=== PATIENT | male | born 1945 | race African-American/Black ===

== ENCOUNTER 2024-07-29 10:53 | Emergency (ER) | payer OTHER, BC ==
--- OUTSIDE RECORDS SUMMARY | 2024-07-29 10:56 | XMS REPORT | Continuity of Care Document ---
Author Name Unknown Address [address] [facility] [address] [place] [address] [facility] thconnect Address [address] [facility] [place] [address] Care Team Providers Care Equalizer Operator Name Role Phone Jonatan Marshall MD Primary Care Physician [phone] Jonatan Marshall Attending Clinician Unavailable Kimberley Salazar MD Attending Clinician [phone] KIMBERLEY SALAZAR Attending Clinician Unavail able Jerome Singh Attending Clinician [phone] JEROME KING Attending Clinician Unavailable Unknown, Attending Attending Clinician Unavailab le Doctor Unassigned, [place] Attending Clinician U navailable AMANDA SEGAL Attending Clinician Unavailable Amanda Puente Attending Clinician [phone] Nurse, [facility] Attending Clinician Un available Ju Matias Attending Clinician [phone] JU JOSUE Attending Clinician Unavailabl e Lab, Adc Fam Pob I Attending Clinician Unavailab Mariluz Caraballo Attending Clinician [phone] MARILUZ MELÉNDEZ Attending Clinician Unavailable Payers Payer Name Policy Type Policy Number Effective Date Expiration Date Source MEDICARE PART A AND B Medicare [id number] 2024 00:00:00 [facility] PPO 6 [id number] Cl ear [facility] Problems Condition Name Condition Details Condition Category Status Onset Date Resolution Date Last Treatment Date Treating Clinician Comments Source Type 2 diabetes mellitus Type 2 diabetes mellitus Disease Active 07-26 00:00: 00 Kam Cortés 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, 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, bilateral legs Disease Active 07-26 00:00: 00 Kam Cortés Injury of tendon of rotator cuff Injury of tendon of rotator cuff Disease Active 07-26 00:00: 00 Kam Cortés Paresthesi a Paresthesi a Disease Active 07-26 00:00: 00 Kam Cortés Peripheral polyneurop athy Peripheral polyneurop athy Disease Active 07-26 00:00: 00 Kam Cortés No known active problems No known active problems Disease [facility] 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, 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, bilateral legs Problem [facility] Allergies, Adverse Reactions, Alerts Allergy Name Allergy Type Status Severity Reaction(s) Onset Date Inactive Date Treating Clinician Comments Source Lisinopr il Propensi ty to adverse reaction s Active Cough 10-29 00:00: 00 Kam Cortés LISINOPR IL DRUG INGREDI Active COUGH 10-29 00:00: 00 [facility] Lisinopr il Propensi ty to adverse reaction s Active Cough 10-29 00:00: 00 [facility] NO KNOWN ALLERGIE S Drug Class Active [facility] Social History Social Habit Start Date Stop Date Quantity Comments Source Gender identity 2023-09-06 04:13:12 Identifies as male gender (finding) Tamar Cortés History of Tobacco Use [facility] Sex Assigned [facility] Tobacco use and exposure 2024-07-26 00:00:00 2024-07-26 00:00:00 Smokeless tobacco non-user [facility] Alcoholic beverage intake 2024-07-26 00:00:00 2024-07-26 00:00:00 Lifetime non-drinker (finding) [facility] History of Social function 2024-07-26 00:00:00 2024-07-26 00:00:00 [facility] Exposure to SARS-CoV-2 (event) 2021-10-19 00:00:00 2021-10-29 17:21:00 Not sure [facility] Smoking Status Start Date Stop Date Source Never smoked tobacco [facility] Tobacco smoking consumption unknown [facility] Medications Ordered Medication Name Filled Medication Name Start Date Stop Date Current Medication? Ordering Clinician Indication Dosage Frequency Signature (SIG) Comments Components Source aspirin EC 81 MG EC tablet aspirin EC 81 MG EC tablet 07-26 09:28: 47 Yes 81mg QD Take 81 mg by mouth 1 time each day. [facility] albuterol 90 mcg/actuati on inhaler 2023-06 00:00: 00 06-13 05:59 :00 Yes [id number] 2{puff} Inhale 2 Puffs every 6 (six) hours as needed for Wheezing for up to 10 days. [facility] amoxicillin -clavulanat e (AUGMENTIN) 875-125 mg per tablet 2023-06 00:00: 00 06-13 05:59 :00 Yes [id number] 1{tbl} Take 1 tablet by mouth in the morning and 1 tablet in the evening. Do all this for 10 days. [facility] codeine-gua ifenesin 10-100 mg/5 mL oral solution 2023-06 00:00: 00 06-08 05:59 :00 Yes 5mL Take 5 mL by mouth every 6 (six) hours as needed for Cough for up to 5 days. Indication s: cough [facility] Cefadroxil 500 MG Cefadroxil 500 MG - 00:00: 00 No 1{capsu le} BID Cefadroxil 500 MG cloNIDine (CATAPRES) tablet 0.1 mg 10-30 02:45: 00 10-30 01:52 :00 No .1mg 0.1 mg, Oral, ONCE, 1 dose, On Thu10/29/21 at 2145, STAT [facility] methocarbam oL (ROBAXIN) tablet 500 mg 10-30 02:45: 00 10-30 01:52 :00 No 500mg 500 mg, Oral, ONCE NOW, 1 dose, On Thu10/29/21 at 2145, Routine [facility] ketorolac (TORADOL) injection 30 mg 10-30 02:45: 00 10-30 01:54 :00 No 30mg 30 mg, Intramuscu lar, ONCE, 1 dose, On Thu10/29/21 at 2145, FROY [facility] carvediloL (COREG) tablet 6.25 mg 10-30 02:45: 00 10-30 01:52 :00 No 6.25mg 6.25 mg, Oral, ONCE NOW, 1 dose, On Thu10/29/21 at 2145, Routine [facility] naproxen 500 mg tablet 10-29 00:00: 00 Yes [id number] 500mg Take 1 tablet by mouth 2 (two) times daily with meals. [facility] methocarbam oL 500 mg tablet 10-29 00:00: 00 Yes [id number] 500mg Take 1 tablet by mouth 4 (four) times daily as needed (muscle pain). [facility] carvediloL 6.25 mg tablet 09-13 00:00: 00 Yes 6.25mg Take 6.25 mg by mouth 2 (two) times daily. [facility] lovastatin 20 mg tablet 09-13 00:00: 00 Yes 20mg Take 20 mg by mouth daily. [facility] metFORMIN 1,000 mg tablet 09-13 00:00: 00 Yes TAKE 1 TABLET BY MOUTH TWICE DAILY . APPOINTMEN T REQUIRED FOR FUTURE REFILLS [facility] Vital Signs Vital Name Observation Time Observation Value Comments S сергей Systolic blood pressure 2024-07-26 09:30:00 180 mm[Hg] [facility] Diastolic blood pressure 2024-07-26 09:30:00 100 mm[Hg] [facility] Epic Heart rate 2024-07-26 09:30:00 66 /min [facility] Body temperature 2024-07-26 09:30:[address] [facility] Epic Respiratory rate 2024-07-26 09:30:00 16 /min [facility] Epic Body height 2024-07-26 09:30:00 180.3 cm [facility] Body weight 2024-07-26 09:30:00 91.627 kg [facility] BMI 2024-07-26 09:30:00 28.17 kg/m2 [facility] Oxygen saturation in Arterial blood by Pulse oximetry 2024-07-26 09:30:00 99 /min [facility] Systolic blood pressure 2024-07-26 09:30:00 180 mm[Hg] [facility] Diastolic blood pressure 2024-07-26 09:30:00 100 mm[Hg] [facility] Heart rate 2024-07-26 09:30:00 66 /min [facility] Body temperature 2024-07-26 09:30:00 36.61 [facility] Respiratory rate 2024-07-26 09:30:00 16 /min [facility] Body height 2024-07-26 09:30:00 180.3 cm [facility] Body weight 2024-07-26 09:30:00 91.627 kg [facility] BMI 2024-07-26 09:30:00 28.17 kg/m2 [facility] Oxygen saturation in Arterial blood by Pulse oximetry 2024-07-26 09:30:00 99 /min [facility] Systolic blood pressure 2024-06-02 16:59:00 231 mm[Hg] [facility] Diastolic blood pressure 2024-06-02 16:59:00 93 mm[Hg] [facility] BMI 2024-06-02 16:58:00 27.12 kg/m2 [facility] Oxygen saturation in Arterial blood by Pulse oximetry 2024-06-02 16:58:00 95 /min [facility] Heart rate 2024-06-02 16:58:00 92 /min Un[facility] Body temperature 2024-06-02 16:58:00 37.28 Lili [facility] Respiratory rate 2024-06-02 16:58:00 20 /min [facility] Body height 2024-06-02 16:58:00 182.9 cm [facility] Body weight 2024-06-02 16:58:00 90.719 kg [facility] Systolic blood pressure 2021-10-30 03:34:00 204 mm[Hg] [facility] Diastolic blood pressure 2021-10-30 03:34:00 69 mm[Hg] [facility] Heart rate 2021-10-30 03:34:00 53 /min Un[facility] Respiratory rate 2021-10-30 03:34:00 18 /min [facility] Oxygen saturation in Arterial blood by Pulse oximetry 2021-10-30 03:34:00 100 /min [facility] Body temperature 2021-10-29 22:53:00 37.17 Lili [facility] Body height 2021-10-29 22:53:00 182.9 cm [facility] Body weight 2021-10-29 22:53:00 91.173 kg [facility] BMI 2021-10-29 22:53:00 27.26 kg/m2 [facility] Systolic blood pressure 2021-10-29 22:44:00 241 mm[Hg] [facility] Diastolic blood pressure 2021-10-29 22:44:00 91 mm[Hg] [facility] Heart rate 2021-10-29 22:43:00 73 /min [facility] Tylere [facility] Body temperature 2021-10-29 22:43:00 36.72 Lili [facility] Respiratory rate 2021-10-29 22:43:00 16 /min [facility] Body height 2021-10-29 22:43:00 182.9 cm [facility] Body weight 2021-10-29 22:43:00 91.173 kg [facility] BMI 2021-10-29 22:43:00 27.26 kg/m2 [facility] Oxygen saturation in Arterial blood by Pulse oximetry 2021-10-29 22:43:00 100 /min [facility] Procedures Procedure Date / Time Performed Performing Clinician Source Complete Blood Count w/Diff and Platelet 2024-07-26 00:00:00 [facility] Comprehensive Metabolic Panel 2024-07-26 00:00:00 [facility] Hemoglobin A1c 2024-07-26 00:00:00 Jacquelineignacio al [facility] Ceruloplasmin 2024-07-26 00:00:00 Jacquelinejaciel l [facility] Copper Level 2024-07-26 00:00:00 [facility] C-Reactive Protein 2024-07-26 00:00:00 [facility] Immunofixation (RUTH) 2024-07-26 00:00:00 [facility] Sedimentation Rate 2024-07-26 00:00:00 [facility] Zinc Level 2024-07-26 00:00:00 [facility] Vitamin B6 Level 2024-07-26 00:00:00 [facility] Vitamin B12 Level 2024-07-26 00:00:00 [facility] Vitamin B1 Level 2024-07-26 00:00:00 [facility] Thyroid Stimulating Hormone w/ Reflex Free T4 2024-07-26 00:00:00 [facility] XR CHEST 2 VW 2024-06-02 17:37:00 Jerome King [facility] POCT SARS-COV-2 ANTIGEN (BINAX NOW) 2024-06-02 17:15:00 Kelby El [facility] AUTHORIZATION FOR RELEASE OF PHI 2021-11-08 05:01:00 Doctor Unassigned, [place] [facility] XR HAND 3+ VW LEFT 2021-10-30 00:10:00 Amanda Segal [facility] CT CERVICAL SPINE WO CONTRAST 2021-10-30 00:04:56 Amanda Segal [facility] CT LUMBAR SPINE WO CONTRAST 2021-10-30 00:04:56 Amanda Segal [facility] NOTICE OF PRIVACY PRACTICES 2021-10-29 22:49:40 Doctor Unassigned, [place] [facility] ASSIGNMENT OF BENEFITS 2021-10-29 22:20:35 Missy gauthier Unassigned, [place] [facility] Encounters Start Date/Time End Date/Time Encounter Type Admission Type Attending [facility] Care Department Encounter ID Source 2024-02-23 09:29:01 Outpatient Jonatan Marshall [facility] CLS [id number] [place] [facility] 2024-07-26 09:30:00 2024-07-26 10:28:23 Consult Kimberley Salazar [place] 1..840.114 [id number] [facility] 2024-07-26 09:19:02 2024-07-26 10:28:23 Outpatient Elective KIMBERLEY SALAZAR EOUT EOUT [id number] [facility] 2024-06-02 11:24:50 2024-06-02 23:59:00 Hospital Encounter Jerome King [facility] [id number] [facility] 2024-06-02 11:24:50 2024-06-02 23:59:00 Outpatient R EDDI KINGDIONY [facility] [id number] [facility] 2024-06-02 09:40:00 2024-06-02 12:04:33 Urgent Care Jerome King Unknown, Attending [facility] [id number] [facility] 2024-04-13 00:00:00 2024-04-13 00:00:00 (TEL) [facility] CLS [id number] [facility] 2024-04-12 00:00:00 2024-04-12 00:00:00 Office Visit- Est Pt.- Level 4 CLS CLS [id number] [facility] 2024-03-15 00:00:00 2024-03-15 00:00:00 Office Visit- Est Pt.- Level 3 CLS CLS [id number] [facility] 2024-03-01 00:00:00 2024-03-01 00:00:00 Office Visit- Est Pt.- Level 3 CLS CLS [id number] [facility] 2024-02-23 00:00:00 2024-02-23 00:00:00 Office Visit- New Pt.- Level 3 CLS CLS [id number] Adrienne little 2021-11-08 00:00:00 2021-11-08 00:00:00 Orders Only Doctor Unassigned, [place] [facility] 1..840.114 350.1.13.10 [id number] [id number] [facility] 2021-10-29 17:59:00 2021-10-29 22:35:00 Emergency X AMANDA SEGAL [facility] ERT [id number] [facility] 2021-10-29 17:59:00 2021-10-29 22:35:00 Emergency Amanda Segal [facility] 1..840.114 350.1.13.10 [id number] [facility] 2021-10-29 17:45:00 2021-10-29 18:05:00 Nurse Visit Nurse, [facility] 1..840.114 350.1.13.10 [id number] [id number] [facility] 2021-10-29 17:45:00 2021-10-29 17:45:00 Outpatient R BERONICA JOSUETANY [facility] [id number] [facility] 2021-10-29 17:20:00 2021-10-29 17:20:00 Outpatient R JU JOSUE [facility] [id number] [facility] 2021-10-29 00:00:00 2021-10-29 00:00:00 Orders Only Doctor Unassigned, [place] [facility] 1.840.114 350.1.13.10 [id number] [id number] [facility] 2020-07-12 15:47:30 2020-07-12 16:07:30 Laboratory Only Lab, Adc Fam Pob [facility] 1.840.114 [id number] [id number] [id number] [facility] 2020-07-12 15:40:00 2020-07-12 15:40:00 Outpatient R MARILUZ MELÉNDEZ [facility] [id number] [facility] Results Test Description Test Time Test Comments Results Result Comments Source XR Chest 2 vw 2024-05 18:46:0 5 XR CHEST 2 VW COMPARISON: No comparison available Ordering provider: JEROME KING CLINICAL INDICATIONS: cough x 2 weeks TECHNIQUE: Appropriate radiographic technique and conforming to ALARA FINDINGS: ? Eventration of the anterior right hemidiaphragm. Otherwise the lungs arewithout infiltrate or abnormal opacity. The pleural space is unremarkable. The heart and mediastinum are within normal limits with atheroscleroticcalcification in the aortic arch. [facility] Notes History of Present IllnessObjectiveSurgical HistoryFamily HistorySocial HistoryAllergiesMedicationsReview of [facility] Recorded VitalsPhysical ExamNeurological ExamCranial NervesMotorSensoryReflexes Date/Time Note Provider Source 2024-07-26 18:20:38 [facility] 2024-07-26 18:20:38 Kimberley Salazar MD - 07/26/2024 9:30 AM CHECK GRADER Subjective Karo Dias is a 78 y.o. male presenting with paresthesais. HPI At least 6 months paresthesias in the feet. Does have some LBP as well. Does have diabetes and HTN but not taking any medication for those problems. Uncomfortable dysesthesias. No symptoms in the hands. Here for further evaluation. Past Medical History He has a past medical history of Diabetes mellitus (HCC) and Hypertension. He has a past surgical history that includes Ankle surgery (Right). Family History: Problem Relation Name Age of Onset No Known Problems Mother No Known Problems Father No Known Problems Sister No Known Problems Brother No Known Problems Mother's Sister No Known Problems Mother's Brother No Known Problems Father's Sister No Known Problems Father's Brother No Known Problems Maternal Grandmother No Known Problems Maternal Grandfather No Known Problems Paternal Grandmother No Known Problems Paternal Grandfather No Known Problems Other He reports that he has never smoked. He has never used smokeless tobacco. He reports that he does not drink alcohol and does not use drugs. Lisinopril Current Outpatient Medications Medication Sig Dispense Refill aspirin EC 81 MG EC tablet Take 81 mg by mouth 1 time each day. No current facility-administered medications for this visit. Neurological: Positive for numbness. Vitals: 07/26/24 0930 BP: (!) 180/100 Pulse: 66 Resp: 16 Temp: 36.6 ?C (97.9 ?F) SpO2: 99% Vitals reviewed. Constitutional: Appearance: Normal appearance. HENT: Head: Normocephalic and atraumatic. Eyes: General: Lids are normal. Extraocular Movements: Extraocular movements intact. Pupils: Pupils are equal, round, and reactive to light. Cardiovascular: Rate and Rhythm: Normal rate and regular rhythm. Pulmonary: Effort: Pulmonary effort is normal. Breath sounds: Normal breath sounds. Abdominal: General: Bowel sounds are normal. Musculoskeletal: General: Normal range of motion. Cervical back: Normal range of motion and neck supple. Neurological: Mental Status: He is alert. Motor: Motor strength is normal. Coordination: Coordination is intact. Psychiatric: Mood and Affect: Mood normal. Speech: Speech normal. Behavior: Behavior normal. Mental Status Alert. Speech is normal. CN II: Visual acuity is normal. Visual christina full to confrontation. CN III, IV, : Extraocular movements intact bilaterally. Normal lids and orbits bilaterally. Pupils equal round and reactive to light bilaterally. CN V: Facial sensation is normal. CN VII: Full and symmetric facial movement. CN VIII: Hearing is normal. CN IX, X: Palate elevates symmetrically. Normal gag reflex. CN XI: Shoulder shrug strength is normal. CN XII: Tongue midline without atrophy or fasciculations. Normal muscle bulk throughout. Normal muscle tone. No abnormal involuntary movements. Strength is 5/5 throughout all four extremities. Decreased distally. Trace. Coordination without dysmetria. Normal casual, toe, heel and tandem gait. Relevant Results Diagnoses and all orders for this visit: Paresthesia - Complete Blood Count w/Diff and Platelet; Future - Comprehensive Metabolic Panel; Future - Hemoglobin A1c; Future - Ceruloplasmin; Future - Copper Level; Future - C-Reactive Protein; Future - Immunofixation (RUTH); Future - Sedimentation Rate; Future - Zinc Level; Future - Vitamin B6 Level; Future - Vitamin B12 Level; Future - Vitamin B1 Level; Future - Thyroid Stimulating Hormone w/ Reflex Free T4; Future Peripheral polyneuropathy - Complete Blood Count w/Diff and Platelet; Future - Comprehensive Metabolic Panel; Future - Hemoglobin A1c; Future - Ceruloplasmin; Future - Copper Level; Future - C-Reactive Protein; Future - Immunofixation (RUTH); Future - Sedimentation Rate; Future - Zinc Level; Future - Vitamin B6 Level; Future - Vitamin B12 Level; Future - Vitamin B1 Level; Future - Thyroid Stimulating Hormone w/ Reflex Free T4; Future Symptoms suggestive of neuropathy. Check additional labs as noted. States he had a MRI of his lumbar spine recently will request that result. NCV/EMG upper and lower extremity. [facility] Scheduled Orders Name Type Priority Associated Diagnoses Orde r Schedule Complete Blood Count w/Diff and Platelet Lab Routine Paresthesia Peripheral polyneuropathy Expected: 07/26/2024 (Approximate), Expires: 07/26/2025 Comprehensive Metabolic Panel Lab Routine Paresthesia Peripheral polyneuropathy Expected: 07/26/2024 (Approximate), Expires: 07/26/2025 Hemoglobin A1c Lab Routine Paresthesia Peripheral polyneuropathy Expected: 07/26/2024 (Approximate), Expires: 07/26/2025 Ceruloplasmin Lab Routine Paresthesia Peripheral polyneuropathy Expected: 07/26/2024 (Approximate), Expires: 07/26/2025 Copper Level Lab Routine Paresthesia Peripheral polyneuropathy Expected: 07/26/2024 (Approximate), Expires: 07/26/2025 C-Reactive Protein Lab Routine Paresthesia Peripheral polyneuropathy Expected: 07/26/2024 (Approximate), Expires: 07/26/2025 Immunofixation (RUTH) Lab Routine Paresthesia Peripheral polyneuropathy Expected: 07/26/2024 (Approximate), Expires: 07/26/2025 Sedimentation Rate Lab Routine Paresthesia Peripheral polyneuropathy Expected: 07/26/2024 (Approximate), Expires: 07/26/2025 Zinc Level Lab Routine Paresthesia Peripheral polyneuropathy Expected: 07/26/2024 (Approximate), Expires: 07/26/2025 Vitamin B6 Level Lab Routine Paresthesia Peripheral polyneuropathy Expected: 07/26/2024 (Approximate), Expires: 07/26/2025 Vitamin B12 Level Lab Routine Paresthesia Peripheral polyneuropathy Expected: 07/26/2024 (Approximate), Expires: 07/26/2025 Vitamin B1 Level Lab Routine Paresthesia Peripheral polyneuropathy Expected: 07/26/2024 (Approximate), Expires: 07/26/2025 Thyroid Stimulating Hormone w/ Reflex Free T4 Lab Routine Paresthesia Peripheral polyneuropathy Expected: 07/26/2024 (Approximate), Expires: 07/26/2025 Health Maintenance Due Date Last Done Comments Diabetes: Hemoglobin A1C 1945 Lipid Panel 1945 Medicare Annual Wellness (AWV) 1945 Annual Physical 12/16/1948 Pneumococcal Vaccine: 65+ Ye ars (1 of 2 - PCV) 12/16/1949 Diabetes: Foot Exam 12/16/1953 Diabetes: Retinopathy Screening 12/16/1953 DTaP/Tdap/Td Vaccines (1 - Tdap) 12/16/1962 Diabetes: Urine Protein Screening 12/16/1962 Zoster Vaccines (1 of 2) 12/16/1993 Respiratory Syncytial Virus (RSV) or >=60 (1 - 1-dose 75+ series) 12/16/2018 Influenza Vaccine (#1) 2024 HIB Vaccines Aged Out No longer eligi ble based on patient's age to complete this topic HPV Vaccines Aged Out No longer eligi ble based on patient's age to complete this topic Hepatitis A Vaccines Aged Out No long er eligible based on patient's age to complete this topic Hepatitis B Vaccines Aged Out No long er eligible based on patient's age to complete this topic IPV Vaccines Aged Out No longer eligi ble based on patient's age to complete this topic Meningococcal Vaccine Aged Out No andrea dick eligible based on patient's age to complete this topic Rotavirus Vaccines Aged Out No longer eligible based on patient's age to complete this topic [id number]38 Diagnosis Paresthesia - Primary Disturbance of skin sensation Peripheral polyneuropathy [id number] 18:20:38 [id number] 11:25:00 Left message with patient. [facility]
[2024-07-29 11:43] LABS: Absolute Eosinophils 0.2 K/uL (0-0.5); Absolute Lymphocytes (CBC) 1.6 K/uL (0.7-4.9); Absolute Monocytes 0.3 K/uL (0.1-1.3); Absolute Neutrophil 3.9 K/uL (1.8-8.0); Basophils % 0.5 % (0-1.3); Hemoglobin 12.1 g/dL (13.6-17.9); MCH 24.9 pg (27.0-35.0); MCHC 32.6 g/dL (32.0-36.0); MCV 76.4 fL (80-100); Monocytes % 5.7 % (3.3-12.3); Neutrophils % 64.8 % (41.7-73.7); Platelets 305 thou/uL (152-406); RBC Red Blood Cell Count 4.84 M/uL (4.33-5.43); Red Cell Distribution Width 14.2 % (12.1-15.2)
[2024-07-29 11:47] LABS: PT Prothrombin Time 11.1 SECONDS (9.4-12.5); Protime INR 1.06
[2024-07-29] MEDS ORDERED: HYDRALAZINE HCL 25 MG TABLET ONE (11:55)
[2024-07-29] MEDS ORDERED: HYDRALAZINE HCL 20 MG/ML VIAL ONE (11:55)
[2024-07-29] MEDS ORDERED: AMLODIPINE 10 MG TAB ONE (11:55)
[2024-07-29 12:01] LABS: ALT/SGPT 17 U/L (16-61); AST/SGOT 13 U/L (15-37); Albumin 2.7 g/dL (3.4-5.0); Albumin/Globulin Ratio 0.6 (1.1-1.8); Alkaline Phosphatase 130 U/L (45-117); Anion Gap 9.3 mEq/L (5.0-15.0); BUN Blood Urea Nitrogen 22 mg/dL (7-18); Bicarbonate 24 mEq/L (21-32); Bilirubin Total 0.2 mg/dL (0.2-1.0); Globulin 4.5 g/dL (2.3-3.5); Glomerular Filtration Rate 35 ml/min (=/>90); Glucose Level 317 mg/dL (74-106); Lipase 39 U/L (13-75); NT PRO-BNP 530 pg/mL (<450); Potassium 4.3 mEq/L (3.5-5.1); Protein, Total 7.2 g/dL (6.4-8.2); Sodium Level 135 mEq/L (136-145); Troponin High Sensitivity 7.9 pg/mL (<58.9)
--- NOTE | 2024-07-29 12:01 | RAD REPORT ---
EXAMINATION: ONE VIEW CHEST XR CLINICAL INDICATION: Male, 78 years old.,COUGH TECHNIQUE: Frontal chest projection is submitted. Examination is limited by patient positioning and t echnique. COMPARISON: 09/04/2014 FINDINGS: The lungs are well inflated and clear. No pneumothorax or sizable effusion. The heart is normal in s ize. Mediastinal contours are unremarkable. IMPRESSION: No acute intrathoracic abnormalities.
[2024-07-29 12:04] LABS: Bilirubin Direct < 0.2 mg/dL (0-0.2)
[2024-07-29 12:16] LABS: Specific Gravity 1.014 (1.005-1.030); Sqamous Epithelial <5 /HPF (None Seen); Urine Bacteria None Seen /HPF (<20); Urine Bilirubin NEGATIVE (Negative); Urine Blood Trace (Negative); Urine Clarity Clear (Clear); Urine Color Light-Yellow (Yellow); Urine Culture Reflex Order NOT NEEDED; Urine Glucose 4+ (Over) (Negative); Urine Ketones NEGATIVE (Negative); Urine Microscopic Reflex YN ORDER UMIC; Urine Nitrite NEGATIVE (Negative); Urine Protein 3+ (Negative); Urine RBC <5 /HPF (None Seen); Urine Urobilinogen Normal (Normal); Urine WBC <5 /HPF (<5)
[2024-07-29] MEDS ORDERED: carvediloL 6.25 MG TAB ONE (12:40)
--- NOTE | 2024-07-29 13:20 | RAD REPORT ---
EXAMINATION: Stone Protocol CLINICAL INDICATION: Abdominal pain TECHNIQUE: CT abdomen and pelvis was performed, without IV contrast, as per department protocol. Oral contrast not given. Axial, sagittal and coronal reconstructions were obtained. One or more of the following dose reduction techniques were used: Automated exposure control, adjustment of the mA and k V according to the patient size, and iterative reconstruction. Unless otherwise specified, incidental findings do not require dedicated imaging follow-up. COMPARISON: No prior exam. FINDINGS: The lack of intravenous and oral contrast limits the sensitivity of this exam for evaluation of solid visceral organs, vascular structures, and bowel A renal calculus not seen. No ureteral calculus. A bladder calculus not noted. Mild prominence of 3 c m low-density structure left renal pelvis. The prostate gland is mildly to moderately enlarged. Liver, spleen, pancreas and adrenals grossly normal No evidence of diverticulitis. IMPRESSION: Negative for a genitourinary calculus 3 mm low-density structure left renal pelvis. This could represent an extrarenal pelvis or parapelvic cyst. It probably does not represent a mild UPJ obstruction. If this is a clinical concern then nuclear medicine renal scan obtained on a nonemergent basis.
--- NOTE | 2024-07-29 13:22 | EDPHYS ---
Physician Documentation [facility] Name: Damon Dias Age: 78 yrs Sex: Male : 1945 Arrival Date: 07/29/2024 Time: 10:53 Bed 13 Private MD: ED Physician Dayron Polanco HPI: 07/29 12:16 This 78 yrs old Black Male presents to ER via Ambulatory with complaints of High Blood allegra Pressure. 12:16 The patient has elevated blood pressure and discovered this at home, with a home allegra device, at a physician's office, and sent to the emergency department for evaluation. Modifying factors: The symptoms are aggravated by activity, The symptoms are alleviated by remaining still. Associated signs and symptoms: The patient has no apparent associated signs or symptoms. Severity of symptoms: At its worst the blood pressure was moderate, in the emergency department the blood pressure is unchanged. The patient has experienced similar episodes in the past, several times. Historical: - Allergies: 11:10 No Known Allergies; ss - PMHx: 11:10 Hypertensive disorder; ss - Immunization history:: Adult Immunizations unknown. - Infectious Disease History:: Denies. - Social history:: Smoking status: Patient denies any tobacco usage or history of. ROS: 12:17 Constitutional: Negative for fever, chills, and weight loss, Eyes: Negative for injury, allegra pain, redness, and discharge, ENT: Negative for injury, pain, and discharge, Neck: Negative for injury, pain, and swelling, Cardiovascular: Negative for chest pain, palpitations, and edema, Respiratory: Negative for shortness of breath, cough, wheezing, and pleuritic chest pain, Abdomen/GI: Negative for abdominal pain, nausea, vomiting, diarrhea, and constipation, Back: Negative for injury and pain, : Negative for injury, bleeding, discharge, and swelling, MS/Extremity: Negative for injury and deformity, Skin: Negative for injury, rash, and discoloration, Neuro: Negative for headache, weakness, numbness, tingling, and seizure, Psych: Negative for depression, anxiety, suicide ideation, homicidal ideation, and hallucinations, Allergy/Immunology: Negative for hives, rash, and allergies, Endocrine: Negative for neck swelling, polydipsia, polyuria, polyphagia, and marked weight changes, Hematologic/Lymphatic: Negative for swollen nodes, abnormal bleeding, and unusual bruising, Exam: 12:17 Constitutional: This is a well developed, well nourished patient who is awake, alert, allegra and in no acute distress. Head/Face: Normocephalic, atraumatic. Eyes: Pupils equal round and reactive to light, extra-ocular motions intact. Lids and lashes normal. Conjunctiva and sclera are non-icteric and not injected. Cornea within normal limits. Periorbital areas with no swelling, redness, or edema. ENT: Nares patent. No nasal discharge, no septal abnormalities noted. Tympanic membranes are normal and external auditory canals are clear. Oropharynx with no redness, swelling, or masses, exudates, or evidence of obstruction, uvula midline. Mucous membranes moist. Neck: Trachea midline, no thyromegaly or masses palpated, and no cervical lymphadenopathy. Supple, full range of motion without nuchal rigidity, or vertebral point tenderness. No Meningismus. Chest/axilla: Normal chest wall appearance and motion. Nontender with no deformity. No lesions are appreciated. Cardiovascular: Regular rate and rhythm with a normal S1 and S2. No gallops, murmurs, or rubs. Normal PMI, no JVD. No pulse deficits. Respiratory: Lungs have equal breath sounds bilaterally, clear to auscultation and percussion. No rales, rhonchi or wheezes noted. No increased work of breathing, no retractions or nasal flaring. Abdomen/GI: Soft, non-tender, with normal bowel sounds. No distension or tympany. No guarding or rebound. No evidence of tenderness throughout. Back: No spinal tenderness. No costovertebral tenderness. Full range of motion. Skin: Warm, dry with normal turgor. Normal color with no rashes, no lesions, and no evidence of cellulitis. MS/ Extremity: Pulses equal, no cyanosis. Neurovascular intact. Full, normal range of motion., bilateral aka Neuro: Awake and alert, GCS 15, oriented to person, place, time, and situation. Cranial nerves II-XII grossly intact. Motor strength 5/5 in all extremities. Sensory grossly intact. Cerebellar exam normal. Normal gait. Psych: Awake, alert, with orientation to person, place and time. Behavior, mood, and affect are within normal limits. 12:17 ECG was reviewed by the Attending Physician. Vital Signs: 11:08 Pulse 75; Resp 16; Temp 98.5(O); Pulse Ox 100% on R/A; Weight 92.08 kg; Height 5 ft. 11 ss in. ; Pain 0/10; 11:10 BP 246 / 78; ss 11:18 BP 251 / 108; Pulse 71; Resp 18; Pulse Ox 100% on R/A; db 11:55 BP 232 / 87; Pulse 71; Resp 18; Pulse Ox 97% on R/A; db 12:05 BP 221 / 74; Pulse 72; Resp 16; Pulse Ox 98% ; db 12:15 BP 205 / 73; Pulse 72; Resp 16; Pulse Ox 100% ; db 12:45 BP 194 / 84; Pulse 77; Resp 18; db 13:00 BP 195 / 56; Pulse 71; Resp 14; Pulse Ox 100% on R/A; ss 13:30 BP 200 / 70; Pulse 74; Resp 14; Pulse Ox 100% on R/A; ss 13:45 BP 196 / 75; Pulse 73; Resp 17; Pulse Ox 100% on R/A; ss 11:08 Body Mass Index 28.31 (92.08 kg, 180.34 cm) ss 11:08 Pain Scale: Adult ss MDM: 10:57 Medical Screening Exam initiated [facility] 12:18 Differential diagnosis: hypertensive crisis, Malignant HTN. Data reviewed: vital signs, [facility] nurses notes, lab test result(s), EKG, radiologic studies, plain films. Consideration of Admission/Observation Escalation of care including admission/observation considered. I considered the following discharge prescriptions or medication management in the emergency department Medications were administered in the Emergency Department. See MAR. Independent interpretation of the following test(s) in the Emergency Department EKG: See my EKG interpretation above. Test considered but Not performed: Ultrasound NO 2 D ECHO. Historians other than the Patient: Family Member: WELL INFORMED. Care significantly affected by the following chronic conditions: Hypertension, Obesity. Counseling: I had a detailed discussion with the patient and/or guardian regarding the historical points, exam findings, and any diagnostic results supporting the discharge/admit diagnosis, the presence of at least one elevated blood pressure reading (>120/80) during this emergency department visit, lab results, radiology results, the need for outpatient follow up, for definitive care, a leguillon debeader, a family practitioner. 07/29 10:57 Order name: Basic Metabolic Panel; Complete Time: 12:06 07/29 10:57 Order name: CBC with Diff; Complete Time: 12:06 07/29 10:57 Order name: LFT's; Complete Time: 12:06 07/29 10:57 Order name: Magnesium; Complete Time: 12:06 07/29 10:57 Order name: NT PRO-BNP; Complete Time: 12:06 07/29 10:57 Order name: PT-INR; Complete Time: 12:06 07/29 10:57 Order name: Troponin HS; Complete Time: 12:06 07/29 10:57 Order name: Urinalysis w/ reflexes; Complete Time: 12:17 07/29 10:57 Order name: Lipase; Complete Time: 12:06 07/29 10:57 Order name: XRAY Chest (1 view); Complete Time: 12:06 07/29 12:17 Order name: CT Stone Protocol 07/29 10:57 Order name: Cardiac monitoring; Complete Time: 12:06 07/29 10:57 Order name: EKG - Nurse/Tech; Complete Time: 11:51 07/29 10:57 Order name: IV Saline Lock; Complete Time: 12:06 07/29 10:57 Order name: Labs collected and sent; Complete Time: 12:06 07/29 10:57 Order name: O2 Per Protocol; Complete Time: 12:06 07/29 10:57 Order name: O2 Sat Monitoring; Complete Time: 12:[address] [facility] EC:17 Rate is 67 beats/min. Rhythm is regular. QRS [place] is Normal. HI interval is normal. QRS allegra interval is normal. QT interval is normal. No Q waves. T waves are Normal. No ST changes noted. Clinical impression: Normal ECG and No evidence of ischemia. Interpreted by me. Reviewed by me. Administered Medications: 12:00 Drug: Norvasc PO 10 mg PO once Route: PO; db 13:59 Follow up: Response: No adverse reaction ss 12:00 Drug: HydrALAZINE PO 25 mg PO once Route: PO; db 13:59 Follow up: Response: No adverse reaction ss 12:00 Drug: hydrALAZINE IVP 10 mg IVP once Route: IVP; Site: right antecubital; db 13:58 Follow up: Response: No adverse reaction ss 12:45 Drug: Coreg PO 6.25 mg PO once; administer with food Route: PO; db 13:58 Follow up: Response: No adverse reaction ss Disposition Summary: 07/29/24 13:22 Discharge Ordered Notes: Location: Home allegra Problem: new allegra Symptoms: have improved allegra Condition: Stable allegra Diagnosis - Essential (primary) hypertension allegra - Unspecified kidney failure allegra Followup: allegra - With: Private Physician - When: 2 - 3 days - Reason: Recheck today's complaints, Continuance of care, Re-evaluation by your physician Followup: allegra - With: Moris Chan MD - When: 2 - 3 days - Reason: Recheck today's complaints, Re-evaluation by your physician Discharge Instructions: - Discharge Summary Sheet allegra - Hypertension, Adult allegra - Hypertension, Adult, [id number] allegra - How to Take Your Blood Pressure, Kocn-[id number]-Tcfy allegra - Chronic Kidney Disease, Adult, [id number] allegra - Managing Your Hypertension allegra Forms: - Medication Reconciliation Form allegra - Antibiotic Education allegra - Prescription Opioid Use allegra - Patient Portal Instructions allegra - Leadership Thank You Letter [facility] Prescriptions: - Coreg 6.25 mg Oral tablet - take 1 tablet ORAL route every 12 hours must administer with a meal/food; 60 allegra tablet; Refills: 0, Product Selection Permitted - Norvasc 10 mg Oral Tablet - take 1 tablet ORAL route once daily; 30 tablet; Refills: 0, Product Selection allegra Permitted Signatures: Dispatcher [employer] Dayron Man MD MD cha Blanchard, Shelby, RN RN Amanda Fonseca RN RN db Corrections: (The following items were deleted from the chart) 10:58 10:58 BASIC METABOLIC PANEL+C.LAB.BRZ ordered. EDMS EDMS 10:58 10:58 CBC+H.LAB.BRZ ordered. EDMS EDMS 10:58 10:58 HEPATIC FUNCTION+C.LAB.BRZ ordered. EDMS EDMS 10:58 10:58 MAGNESIUM+C.LAB.BRZ ordered. EDMS EDMS 10:58 10:58 PROBNP+C.LAB.BRZ ordered. EDMS EDMS 10:58 10:58 PROTIME (+INR)+COAG.LAB.BRZ ordered. EDMS EDMS 10:58 10:58 Troponin High Sensitivity+C.LAB.BRZ ordered. EDMS EDMS 10:58 10:58 Urinalysis+U.LAB.BRZ ordered. EDMS EDMS 10:58 10:58 LIPASE+C.LAB.BRZ ordered. EDMS EDMS 10:58 10:58 Chest Single View+RAD.RAD.BRZ ordered. EDMS EDMS
--- NOTE | 2024-07-29 13:22 | ER ---
Nurse's Notes [facility] [place], [place] Name: Damon Dias Age: 78 yrs Sex: Male : 1945 Arrival Date: 07/29/2024 Time: 10:53 Bed 13 Private MD: Diagnosis: Essential (primary) hypertension;Unspecified kidney failure Presentation: 07/29 11:08 Chief complaint: Patient states: Sent by PCP for high blood pressure. Pt has no ss complaints at this time. Has reportedly not taken his prescribed BP medications in over a year. Coronavirus screen: Client denies travel out of the [place] in the last 14 days. Ebola Screen: Patient denies exposure to infectious person. Patient denies travel to an Ebola-affected area in the 21 days before illness onset. Initial Sepsis Screen: Does the patient meet any 2 criteria? No. Patient's initial sepsis screen is negative. Does the patient have a suspected source of infection? No. Patient's initial sepsis screen is negative. Risk Assessment: Do you want to hurt yourself or someone else? Patient reports no desire to harm self or others. Onset of symptoms is unknown. 11:08 Method Of Arrival: Ambulatory ss 11:08 Acuity: BRENDA 2 ss Historical: - Allergies: 11:10 No Known Allergies; ss - PMHx: 11:10 Hypertensive disorder; ss - Immunization history:: Adult Immunizations unknown. - Infectious Disease History:: Denies. - Social history:: Smoking status: Patient denies any tobacco usage or history of. Screenin:40 [facility] ED Fall Risk Assessment (Adult) History of falling in the last 3 months, db including since admission No falls in past 3 months (0 pts) Confusion or Disorientation No (0 pts) Intoxicated or Sedated No (0 pts) Impaired Gait No (0 pts) Mobility Assist Device Used No (0 pt) Altered Elimination No (0 pt) Score/Fall Risk Level 0 - 2 = Low Risk Oriented to surroundings, Maintained a safe environment. Abuse screen: Denies threats or abuse. Denies injuries from another. Nutritional screening: No deficits noted. Tuberculosis screening: No symptoms or risk factors identified. Assessment: 11:10 Reassessment: Patient appears in no apparent distress at this time. Patient and/or db family updated on plan of care and expected duration. Pain level reassessed. Patient is alert, oriented x 3, equal unlabored respirations, skin warm/dry/pink. General: Appears in no apparent distress. comfortable, Behavior is calm, cooperative. Pain: Denies pain. Neuro: Level of Consciousness is awake, alert, obeys commands, Oriented to person, place, time, situation. Respiratory: Airway is patent Respiratory effort is even, unlabored, Respiratory pattern is regular, symmetrical. 12:08 Reassessment: Patient appears in no apparent distress at this time. Patient and/or db family updated on plan of care and expected duration. Pain level reassessed. Patient is alert, oriented x 3, equal unlabored respirations, skin warm/dry/pink. 12:45 Reassessment: Patient appears in no apparent distress at this time. Patient and/or db family updated on plan of care and expected duration. Pain level reassessed. Patient is alert, oriented x 3, equal unlabored respirations, skin warm/dry/pink. 13:49 Reassessment: Patient appears in no apparent distress at this time. Patient and/or ss family updated on plan of care and expected duration. Pain level reassessed. Patient is alert, oriented x 3, equal unlabored respirations, skin warm/dry/pink. Patient states symptoms have improved. Vital Signs: 11:08 Pulse 75; Resp 16; Temp 98.5(O); Pulse Ox 100% on R/A; Weight 92.08 kg; Height 5 ft. 11 ss in. ; Pain 0/10; 11:10 BP 246 / 78; ss 11:18 BP 251 / 108; Pulse 71; Resp 18; Pulse Ox 100% on R/A; db 11:55 BP 232 / 87; Pulse 71; Resp 18; Pulse Ox 97% on R/A; db 12:05 BP 221 / 74; Pulse 72; Resp 16; Pulse Ox 98% ; db 12:15 BP 205 / 73; Pulse 72; Resp 16; Pulse Ox 100% ; db 12:45 BP 194 / 84; Pulse 77; Resp 18; db 13:00 BP 195 / 56; Pulse 71; Resp 14; Pulse Ox 100% on R/A; ss 13:30 BP 200 / 70; Pulse 74; Resp 14; Pulse Ox 100% on R/A; ss 13:45 BP 196 / 75; Pulse 73; Resp 17; Pulse Ox 100% on R/A; ss 11:08 Body Mass Index 28.31 (92.08 kg, 180.34 cm) ss 11:08 Pain Scale: Adult ss ED Course: 10:56 Patient arrived in ED. mr 10:57 Cisco Taylor MD is Attending Physician. ec2 10:57 Attending Physician role handed off by Cisco Taylor MD [facility] 10:57 Dayron Polanco MD is Attending Physician. allegra 11:10 Triage completed. ss 11:10 Amanda Fonseca, ALLYSSA is Primary Nurse. db 11:10 Arm band placed on right wrist. ss 11:11 Patient has correct armband on for positive identification. Bed in low position. Call db light in reach. Side rails up X 1. Client placed on continuous cardiac and pulse oximetry monitoring. NIBP monitoring applied. Client placed on continuous cardiac and pulse oximetry monitoring. NIBP monitoring applied. site monitor on. Pulse ox on. NIBP on. 11:30 Inserted saline lock: 20 gauge in right antecubital area, using aseptic technique. db Blood collected. Flushed with 10 mL NS. 11:46 XRAY Chest (1 view) In Process Unspecified. EDMS 11:51 EKG done, by ED staff, reviewed by Dayron Polanco MD. am7 12:[address] db 12:33 CT Stone Protocol In Process Unspecified. EDMS 13:22 Moris Chan MD is Referral Physician. [facility] 13:57 Provided Education on: DISCHARGE AND FOLLOWUP. ss 13:57 No provider procedures requiring assistance completed. IV discontinued, intact, ss bleeding controlled, No redness/swelling at site. Administered Medications: 12:00 Drug: Norvasc PO 10 mg PO once Route: PO; db 13:59 Follow up: Response: No adverse reaction ss 12:00 Drug: HydrALAZINE PO 25 mg PO once Route: PO; db 13:59 Follow up: Response: No adverse reaction ss 12:00 Drug: hydrALAZINE IVP 10 mg IVP once Route: IVP; Site: right antecubital; db 13:58 Follow up: Response: No adverse reaction ss 12:45 Drug: Coreg PO 6.25 mg PO once; administer with food Route: PO; db 13:58 Follow up: Response: No adverse reaction ss Medication: 11:41 VIS not applicable for this client. db Outcome: 13:22 Discharge ordered by . allegra 13:57 Discharged to home ambulatory, with family, 13:57 Condition: stable 13:57 Discharge instructions given to patient, family, Instructed on discharge instructions, follow up and referral plans. Prescriptions given X 2, 13:59 Patient left the ED. Signatures: Dispatcher [employer] EDDayron Smith MD MD cha Rivera, Glenis, Reg Reg mr Colette Andersen RN RN ss Benton, Danielle, RN RN db Corral, Edwin, MD MD ec2 Kathy Salazar am7
[2024-07-29 14:16] VITALS: TEMP 98.5
[2024-07-29 14:31] VITALS: O2SAT 100
[2024-07-29 14:35] VITALS: BP 196/75
== END 2024-07-29 13:59 | disposition home or self-care (01) ==
LOC: ER 10:53
DX: I10 Essential (primary) hypertension (principal); N19 Unspecified kidney failure
CPT/HCPCS: 85025; 81001; 80048; 36415; 83735; 85610; 80076; 84484; 83690; 83880; 76377; 74176; 71045; 96374; 99285; J0360; 93005